=== PATIENT | female | born 1965 | race Caucasian/White ===

== ENCOUNTER 2017-08-06 18:43 | Inpatient (IN) | END 2017-08-12 13:55 | disposition home or self-care (01) | DRG 885 | DX: F29 Unspecified psychosis not due to a substance or known physiological condition (principal); J45.901 Unspecified asthma with (acute) exacerbation; E03.9 Hypothyroidism, unspecified; F17.210 Nicotine dependence, cigarettes, uncomplicated; G89.29 Other chronic pain; G31.84 Mild cognitive impairment of uncertain or unknown etiology; M25.519 Pain in unspecified shoulder; F32.9 Major depressive disorder, single episode, unspecified; J45.990 Exercise induced bronchospasm; Y93.67 Activity, basketball; Z81.1 Family history of alcohol abuse and dependence ==